=== PATIENT | male | born 1965 | race Two or more races ===

== ENCOUNTER 2020-02-02 13:32 | Emergency (ER) | payer SELFPAY ==
[~2020-02-02] VITALS: Ht 167.6 cm; Wt 95.7 kg
[2020-02-02 13:56] VITALS: BP 137/86
[2020-02-02] MEDS ORDERED: TETANUS-DIPTH-ACEL PERTUSSIS 0.5ML SYR Tdap IM ONE (15:30)
[2020-02-02] MEDS ORDERED: cefTRIAXone SOD 1,000 MG VL IM ONE (15:30)
== END 2020-02-02 16:12 | disposition home or self-care (01) ==
LOC: ER 13:42
DX: S62.665A Nondisplaced fracture of distal phalanx of left ring finger, initial encounter for closed fracture (principal); W22.8XXA Striking against or struck by other objects, initial encounter; Y93.9 Activity, unspecified; Y99.8 Other external cause status; Y92.9 Unspecified place or not applicable
CPT/HCPCS: 73130; 90471; 90715; 96372; 99284; J0696